=== PATIENT | male | born 1980 | race Caucasian/White ===

== ENCOUNTER 2024-05-31 06:06 | Day surgery (SDC) | payer MEDICARE, MEDICAID, SELFPAY ==
[2024-05-31] VITALS (16 sets, daily range): BP systolic 101–142; BP diastolic 64–86; PULSE 60–665; RESP 16; TEMP 36.9–37.2; O2SAT 90–95; BMI 40.2
[2024-05-31] MEDS: SODIUM CHLORIDE 0.9 % (FLUSH) 10 ML SYRINGE IVF (07:13)
[2024-05-31] MEDS: 0.9 % SODIUM CHLORIDE 500 ML 500 ML 100 ML IV (07:15)
[2024-05-31] MEDS: CEFAZOLIN 2 GM INJ IVP (07:45)
[2024-05-31] MEDS: BUPIVACAINE 0.5% 30 ML INJECTION (08:20)
--- NOTE | 2024-05-31 08:43 | P.GSOP_ITS ---
Operative Note Date of procedure: 05/31/24 Pre-op diagnosis: Epigastric hernia Post-op diagnosis: Same, incarcerated preperitoneal fat Type of Procedure: Open epigastric hernia repair Indications: Patient is a 44-year-old male who presented to clinic with a symptomatic hernia. Please see consultation note regarding full discussion. Risks and benefits of operative intervention were discussed at length with the patient. Risks included but was not limited to: Bleeding, infection, risk of damage to surrounding structures, possible need for additional procedures and postoperative complications such as pneumonia, pulmonary emboli or RI. All questions and concerns were addressed with the patient and his dad, who is his power of ip technology transactions attorney agreeing to proceed. Procedure Description: After discussing the risks and benefits of the procedure, the patient signed informed consent.? The operative site was marked and the patient was brought to the operating room and placed on the operating table in supine position.? Care was taken to pad the patient's pressure points.?? The patient was then intubated by anesthesia.?? The operative site was then prepped and draped in the usual sterile fashion.? A time-out was then performed. 0.5% Marcaine was used to anesthetize the area. A vertical midline incision was made just above the umbilicus. Dissection was carried down through subcutaneous fat. Evidence of a small epigastric hernia just superior and to the right of the umbilicus. There was incarcerated preperitoneal fat. The hernia sac was circumferentially dissected free. A portion of the hernia sac and preperitoneal fat was removed, to allow for reduction. The tissue was passed off to the back table for disposal. The resulting fascial defect measured less than 1 cm the decision was made for primary repair. Using a [id number] repair technique several 0 Nurolon suture were placed to close the defect. Hemostasis was assured. The fascia was injected with 0.5% Marcaine. The incision was then closed in layers of interrupted 3-0 Vicryl and running 4-0 Monocryl suture. Sterile dressings were then applied. ? The patient was then woken and transported to the recovery area in stable condition. ? The patient tolerated the procedure well. Findings: Small epigastric hernia repair, less than 1 cm repaired primarily. Anesthesia: GETA Surgeon: Tigist Pickett MD Estimated blood loss (mL): 5 Condition: stable Disposition: PACU
--- NOTE | 2024-05-31 08:43 | W.PM.H&PU ---
History & Physical Update History & Physical Update H&P Reviewed and patient assessed: No changes noted
--- NOTE | 2024-05-31 08:53 | W.ANESCHARGE ---
Anesthesia Charges Start Date/Time Anesthesia Start Date: 05/31/24 Anesthesia Start Time: 07:39 Stop Date/Time Anesthesia Stop Date: 05/31/24 Anesthesia Stop Time: 08:54
--- NOTE | 2024-05-31 09:03 | W.ANESCHARGE ---
Anesthesia Charges Start Date/Time Anesthesia Start Date: 05/31/24 Anesthesia Start Time: 07:39 Stop Date/Time Anesthesia Stop Date: 05/31/24 Anesthesia Stop Time: 08:54
[2024-05-31] MEDS: fentaNYL 100 MCG/2 ML inj 50 MCG IVP (09:04)
[2024-05-31] MEDS: HYDROCODONE-ACETAMIN 5-325 MG 1 TAB PO (10:29)
--- NOTE | 2024-05-31 11:13 | SUR.PHASEII ---
Patient up to recliner. On room air, patient's 02 saturation 84-97%. Patient able to take deep breaths and cough. Patient and dad instructed on incentive spirometer and verbalize understanding. Patient able to demonstrate proper use of incentive spirometer. Dr. Lezama aware.
--- NOTE | 2024-05-31 11:54 | SUR.PHASEII ---
Patient sitting in recliner. Patient using incentive spirometer periodically per dad and patient deep breathing. 90-92% o2 sats on 1L NC. O2 titrated to 0.5L NC.
--- NOTE | 2024-05-31 12:51 | SUR.PHASEII ---
1220: Patient ambulatory to restroom with stand by assist. Patient ambulated around the unit with stand by assist. Patient denies SOB. On return to room, O2 sats 90-92% with short dips to 88%. Patient encouraged to take deep breaths and cough. Dr. Lezama aware and patient clear to discharge. Patient encouraged to use incentive spirometer hourly while awake. Dad and patient verbalize understanding. Instructions for IS sent home with patient. Patient encouraged to sleep sitting upright in recliner or propped on pillows. Patient and dad state this is usual preference for sleep. Patient and dad deny questions or concerns.
== END 2024-05-31 12:50 | disposition home or self-care (01) ==
PROVIDERS: PCP Family Medicine; Visit Provider Surgery
PROC: (CPT 49592; principal; 2024-05-31 07:30)
DX: K43.6 Other and unspecified ventral hernia with obstruction, without gangrene (principal)
CPT/HCPCS: 49592; 00750; 00752; A9270; J0330; J0665; J0690; J1100; J2405; J2704; J2710; J3010; J7030